=== PATIENT | male | born 1950 | race Caucasian/White ===

== ENCOUNTER 2018-01-05 06:22 | Outpatient (CLI) ==
--- NOTE | 2018-01-05 10:20 | STECHOSEST ---
Date of Test: 01/05/18 Ordering Physician: DR. ASHLEY NOE Occupation: DISABLED Reason for Exam: CHEST PAIN, SOB, COPD, CAD Smoking History: QUIT 22 YRS AGO Height: 77" Weight: 286 LBS Current Medications: LISINOPRIL, INHALER Resting EKG: SINUS RHYTHM/ LVH BY VOLTAGE Target Heart Rate: 130/154 S-T SEGMENT STAGE MPH/GRADE HEART RATE BPM BLOOD PRESSURE mmhg RHYTHM +/- ELEVATION DEPRESSION SYMPTOMS,COMMENTS At Rest 80 136/88 SR X NONE 1 1.7/10% 2 2.5/12% 3 3.4/14% 4 4.2/16% 5 5.0/18% Immediately after 126 156/90 SR X SHORT OF BREATH Minutes Post Exercise 5:00 77 140/84 SR X SHORT OF BREATH Minutes Post Exercise Total Time: 2:35 Maximum Heart Rate Reached: 126 Reason for Termination: SHORT OF BREATH 97% Oxygen saturation on room air with exercises Mets 4.6 INTERPRETATION 1. NO CHEST PAIN OR DISCOMFORT 2. COUPLE OF PVC'S WITH EXERCISE 3. HYPOKINETIC INFERIOR POST WALL AT REST AND WITH EXERCISE 4. SESTAMIBI TO FOLLOW MTDD
--- NOTE | 2018-01-05 11:13 | NM ---
EXAM: Myocardial perfusion imaging HISTORY: Chest pain COMPARISON: Myocardial imaging on 05/06/2011 showed no reversible ischemia. Old inferior wall infarc tion. Ejection fraction of 50%. TECHNIQUE: Patient was injected 3.7 mCi of thallium 201 chloride intravenously. SPECT imaging of the heart was acquired. Patient was stressed on a treadmill and at peak exercise injected 26.3 mCi of T c99m Sestamibi intravenously. Another SPECT imaging of the heart was performed. Gated cardiac study was acquired. FINDINGS: Post stress images show normal left ventricular cavity size. Fixed defect is noted involvi ng inferior wall most likely due to old infarction. No definite evidence of reversible ischemia. Le ft ventricular ejection fraction is 41%. IMPRESSION: 1. SPECT myocardial imaging shows no evidence of reversible ischemia 2. Old inferior wall myocardial infarction. 3. Left ventricular ejection fraction of 41%.
== END 2018-01-05 06:23 | disposition home or self-care (01) ==
LOC: CAR 06:22
PROVIDERS: ATTEND Internal Medicine
DX: R07.9 Chest pain, unspecified (principal); R06.02 Shortness of breath; I25.10 Atherosclerotic heart disease of native coronary artery without angina pectoris; Z95.5 Presence of coronary angioplasty implant and graft

== ENCOUNTER 2018-10-12 09:31 | Inpatient (IN) | payer OTHER ==
[2018-10-12 10:32] VITALS: BMI 34.9
[2018-10-12] MEDS ORDERED: NITROSTAT SL PRN (10:53)
[2018-10-12] MEDS ORDERED: TYLENOL PO PRN (10:53)
[2018-10-12] MEDS ORDERED: ATROPINE SULFATE PFS IVP PRN (10:53)
[2018-10-12] MEDS ORDERED: VISTARIL INJ IM PRN (10:53)
[2018-10-12] MEDS ORDERED: XOPENEX 1.25 MG NEB ONE (11:03)
[2018-10-12] MEDS ORDERED: DECADRON 4 MG/ML SDV IM SCH (11:30)
[2018-10-12] MEDS ORDERED: XOPENEX 1.25 MG NEB SCH (12:00)
[2018-10-12] MEDS ORDERED: PROAIR HFA IH SCH (12:00)
[2018-10-12 14:10] VITALS: BP 127/76; TEMP 97.5
--- NOTE | 2018-10-12 14:32 | CT ---
EXAM: CT ABDOMEN AND PELVIS HISTORY: Abdominal distension TECHNIQUE: CT abdomen and pelvis with intravenous contrast. Images were reconstructed using 5 mm se ction thickness. Reformations were prepared. 75 ml Visipaque. FINDINGS: No comparison. No focal hepatic or splenic lesions. Gallbladder is absent. Pancreas and adrenal glands are within normal limits. There is moderate bilateral hydronephrosis. A few small 4 mm calculi are seen in the upper left kidn ey. A few punctate calculi are seen in the right kidney. There is a round 7 mm calculus in the lowe r right ureter near the vesicoureteral junction level. No left ureteral calculus is seen. The urina ry bladder is grossly distended measuring up to 19 x 23 x 22 cm. Prostate may be minimally prominent in size. There is moderate to severe atherosclerotic disease. Fusiform aneurysmal caliber of the infrarenal a claudia measures up to 3.7 cm. Stomach appears normal. Normal appendix. No evidence of bowel obstruct ion. There is no ascites. N o ventral wall hernia. The bones reveal degenerative disc and facet di sease of the spine. Lung bases have minimal dependent atelectasis. There is no pneumoperitoneum. IMPRESSION: 1. Gross distension of the urinary bladder likely the etiology of moderate bilateral hydronephrosis. There is a round 7 mm calculus in the lower right ureter near the vesicoureteral junction although whether this calculus is causing obstruction is indeterminate. There is bilateral nephrolithiasis. No significant prostate enlargement. This bladder distension is suggestive of bladder outlet obstruc tion or neurogenic bladder. 2. Atherosclerotic disease with 3.7 cm fusiform aneurysmal caliber of the infrarenal aorta.
--- NOTE | 2018-10-12 14:34 | CT ---
EXAM: CT chest with contrast HISTORY: Shortness of breath, wheezing COMPARISON: None TECHNIQUE: CT chest performed with intravenous contrast. Coronal and sagittal reformatted images ob tained. FINDINGS: The thyroid and thoracic inlet appear normal. Heart normal in size. Coronary calcificati ons. No pericardial effusion. Aorta normal in caliber. Mild atherosclerosis. Esophagus unremarkab le. No lymphadenopathy identified in the chest. Calcified mediastinal and bilateral hilar lymph nod es, consistent with old granulomatous disease. No acute abnormalities of the bones. Degenerative ch megan in the spine. Anterior wedging of several mid thoracic vertebral bodies with chronic features. Accentuated kyphosis thoracic spine. Central airway patent. Mild bibasilar atelectasis. Very mild emphysematous change. Scattered scarring. No airspace consolidation. No pleural effusion. No pne umothorax. Granulomatous calcification. There are filling defects in the pulmonary arteries seen o n the right involving at least the right middle lobe and right lower lobe (image 28-29 and 26 also qu estionable filling defects involving left lower lobe pulmonary arteries around coronal image 73. Eval uation of the pulmonary arteries is limited on nonangiography CT chest Please refer to separate repor t CT abdomen pelvis regarding findings in the upper abdomen. IMPRESSION: 1. Critical finding: Right-sided pulmonary embolism. Questionable left-sided pulmonary embolism. Recommend a follow-up CT angiography chest to better assess thrombus burden. 2. Scattered subsegmental atelectasis and/or scarring. 3. Very mild emphysema. 4. Coronary calcifications. Atherosclerosis. Finding #1 called to patient nurse 2:28 p.m. 10/12/2018.
--- NOTE | 2018-10-12 14:57 | HP ---
DATE OF SERVICE: 10/12/18 HISTORY OF PRESENT ILLNESS: 68-year-old with complaint of shortness of breath with minimal exertion. Six weeks ago he had a UTI, stomach swollen, cannot breathe, wheezing, fatigue. He was seen at the clinic in [place], shortness of breath on exertion with no other symptoms of CHF. PAST MEDICAL HISTORY: Hypertension SD Sleep apnea Dyslipidemia Hyperglycemia COPD Asthma PAST SURGICAL HISTORY: Stents x2 Dr. Ventura CAD with stent 07/14 REVIEW OF SYSTEMS: CONSTITUTIONAL: Positive for fatigue. No fever. HEENT: No sinus drainage, no sore throat. RESPIRATORY: No cough, no congestion. CARDIOVASCULAR: No atypical chest pain for coronary artery disease. Burning on exertion. No CHF symptoms or palpitations. Shortness of breath. GASTROINTESTINAL: No melena or abdominal pain. No GERD. Appetite is normal. One bowel movement daily. GENITOURINARY: No hematuria, no prostatism, no polyuria. THEATRE MANAGER: No blackout, no dizziness, no headache, no double vision. MUSCULOSKELETAL: Osteoarthritis pain. ENDOCRINE: Weight gain. SKIN: Not dry, no rash. PSYCHIATRIC: Anxious. No depression, no suicidal thoughts, no homicidal thoughts. SOCIAL HISTORY: Marital Status: . Alcohol Usage: No. Tobacco Usage: No. FAMILY HISTORY: Father Mother Brother 2 Sister 2 MEDICATIONS: Aspirin 325mg PO daily Lisinopril 20/12.5mg PO daily Pravastatin 40mg twice a day ALLERGIES: Mobic Advair Band-aids PHYSICAL EXAMINATION: V/S: pulse 88, blood pressure 126/66, temperature 99, pulse ox 94%. Height 6'4 , BMI 36.3 and weight 298.2. GENERAL APPEARANCE: Oriented times three. HEENT: Normal. NECK: No JVP, no bruits. RESPIRATORY:Decreased breath sounds with mild expiratory wheezing. CARDIOVASCULAR: S1, S2, no S3, no murmurs. No cyanosis, clubbing. No ascites. GI/ABDOMEN: No tenderness. Bowel sounds are active. EXTREMITIES: edema, pulses +1, equal. THEATRE MANAGER: Deep tendon reflexes, sensory, motor and gait all normal. RECTAL: refused /PROSTATE: 8-1-18 (1.4). ASSESSMENT: 1. Shortness of breath with exertion 2. Exertional chest discomfort 3. History of UTI 6 weeks ago 4. Obesity 5. CAD with stent 07/14 6. Sleep apnea on CPAP 7. Hypertension 8. Dyslipidemia 9. Metabolic syndrome 10.Hyperglycemia 11.Chronic gout 12.Moderate COPD/asthma 13.Osteoarthritis bilateral hips 14.Status post cholecystectomy 15.PFT 01/15 16.Echo/stress 01/15 17.Noncompliant of life style, medications and followups. PLAN: 1. Routine telemetry orders 2. Urinalysis and culture and sensitivity 3. BNP 4. T4/TSH 5. ABG 6. CT scan of abdomen and pelvis with contrast 7. Lisinopril/HCTZ 20/12.5mg PO daily 8. Atorvastatin 40mg PO daily 9. Xopenex four times a day daily 10.1cc Decadron IM now and QAM 11.ProAir HFA two puffs four times a day 12.PFT 13.Echo 14.Dobutamine stress echo TIME SPENT: More than 70 minutes. MTDD
[2018-10-12] MEDS ORDERED: ELIQUIS PO SCH ×2 (15:00)
[2018-10-12] MEDS ORDERED: DEXTROSE 5%-1/2NS IV SOLUTION 1,000 ML IV SCH (15:30)
--- NOTE | 2018-10-12 16:04 | US ---
EXAM: ULTRASOUND LOWER EXTREMITY VENOUS DOPPLER EXAM HISTORY: Pulmonary embolism. FINDINGS: Bilateral lower extremity venous Doppler exam. Real time betts-scale, Doppler spectral mamadou lysis and color-flow Doppler imaging performed. The veins targeted for evaluation include the common femoral, greater saphenous, profundus, femoral, popliteal, peroneal, anterior tibial and posterior t ibial. Incomplete compression of the right superficial femoral and left popliteal veins with partial spontan eous blood flow remaining within these affected vessels. The evaluated veins otherwise demonstrated n ormal spontaneous flow and compression without evidence of thrombosis. IMPRESSION: 1. Nonocclusive thrombosis found within the right superficial femoral vein and the left popliteal ve in. Otherwise within normal limits.
--- NOTE | 2018-10-12 16:06 | DS ---
DATE OF SERVICE: 10/12/18 FINAL DIAGNOSIS: 1. RIGHT LOWER LUNG PULMONARY EMBOLI, QUESTIONABLE LEFT-SIDED INVOLVEMENT. 2. CHRONIC LUNG DISEASE WITH CHRONIC BRONCHIAL ASTHMA. 3. HISTORY OF CORONARY ARTERY DISEASE WITH STENT WITH INFERIOR WALL CO, JULY 2013. 4. OBSTRUCTIVE SLEEP APNEA ON CPAP. 5. OBESITY, BMI 36. 6. HISTORY OF HYPERTENSION. 7. HISTORY OF DYSLIPIDEMIA. 8. METABOLIC SYNDROME. 9. HISTORY OF DIABETES MELLITUS TYPE 2. 10. CHRONIC GOUT. 11. BILATERAL OSTEOARTHRITIS OF HIPS. 12. STATUS POST CHOLECYSTECTOMY, NONCOMPLIANCE OF LIFESTYLE, MEDICATIONS AND FOLLOWUP. 13. CHRONIC KIDNEY DISEASE, STAGE 2. DISCHARGE INSTRUCTIONS: Transfer to [facility]. MEDICATIONS AT DISCHARGE: Aspirin 325 mg daily Lisinopril 20/12.5 daily Proventil inhaler two puffs q.i.d. The patient was supposed to be on Atorvastatin 40 mg daily daily. NEW PRESCRIPTIONS: None DISCONTINUED MEDICATIONS: None DIET INSTRUCTIONS: N/A ACTIVITY: N/A SMOKING: Nonsmoker DISEASE SPECIFIC EDUCATION: Test results Transfer HOSPITAL COURSE: 68-year-old white male seen in the office. He walked in because of complaint of being short of breath for the past several weeks. The patient has been treated for UTI at [facility] 6 weeks ago. He says after that he is feeling distended with tight abdomen. The patient was wheezing at rest at that time. There was no evidence of congestive heart failure clinically. On further testing, the patient was noted to have pulmonary emboli on the right side and possibility of left. CT scan of the abdomen showed distended urinary bladder with hydronephrosis. Kidney functions use to be practically normal which has deteriorated some. Clinically, the patient is stable. He is oriented to time, place and person, not in distress. In fact, he says he is feeling better. The family is present especially the daughter and the patient were informed about the diagnosis. [facility] was called and talked to Dr. Haider who accepted the transfer. LABS/IMAGING: Hemoglobin 12.6, hematocrit 39, WBC 5,800 with normal differential. ABGs p02 73 , pc02 38, pH 7.38 with 94% saturation on room air. EKG sinus rhythm, inferior wall CO, rate of 75/min. CK negative. Troponin negative. Creatinine 1.4, BUN 34 , potassium 4.2. T4, TSH normal. CT scan of the abdomen showed gross urinary bladder distention, bilateral hydronephrosis, 7 mm calculus in the lower right ureter near vesicoureteral junction, could be causing obstruction on that side, bilateral nephrolithiasis, atherosclerotic disease with 3.7cm fusiform aneurysm. CT scan of the chest showed right middle lobe, right lower lobe emboli , possibility of left emphysema, scarring, coronary calcifications noted. ADDENDUM: Venous scan showed right partial femoral thrombus and left popliteal thrombus. Eliquis 10 mg p.o. dose has been given. CONDITION AT TIME OF TRANSFER: Stable. TIME SPENT: More than 60 minutes. MTDD
[2018-10-12] MEDS ORDERED: LIPITOR PO SCH (21:00)
[2018-10-13] MEDS ORDERED: ASPIRIN EC PO SCH (08:00)
[2018-10-13] MEDS ORDERED: ZESTORETIC 20-12.5 MG TAB PO SCH (09:00)
== END 2018-10-12 16:43 | disposition short-term general hospital (02) | DRG 176 ==
LOC: MEDSURG B 09:31 → SCU 14:54
PROVIDERS: ADMIT Internal Medicine; ATTEND Internal Medicine
DX: I26.99 Other pulmonary embolism without acute cor pulmonale (principal); I25.10 Atherosclerotic heart disease of native coronary artery without angina pectoris; I25.2 Old myocardial infarction; J44.9 Chronic obstructive pulmonary disease, unspecified; J45.909 Unspecified asthma, uncomplicated; I10 Essential (primary) hypertension; E66.9 Obesity, unspecified; E78.5 Hyperlipidemia, unspecified; E88.81 Metabolic syndrome and other insulin resistance; E11.9 Type 2 diabetes mellitus without complications; M1A.9XX0 Chronic gout, unspecified, without tophus (tophi); M16.0 Bilateral primary osteoarthritis of hip; N18.2 Chronic kidney disease, stage 2 (mild); G47.33 Obstructive sleep apnea (adult) (pediatric); R07.89 Other chest pain; Z68.36 Body mass index [BMI] 36.0-36.9, adult; Z91.19 Patient's noncompliance with other medical treatment and regimen
CPT/HCPCS: 36415; 80053; 81001; 82550; 82553; 82803; 83880; 84439; 84443; 84484; 85025; 93005; 93010; 94640

== ENCOUNTER 2018-10-12 16:47 | Outpatient (CLI) ==
[2018-10-12 10:32] VITALS: BMI 34.9
== END 2018-10-12 17:12 | disposition short-term general hospital (02) ==
LOC: AMBL 16:47
PROVIDERS: ATTEND Emergency Medicine
DX: I26.99 Other pulmonary embolism without acute cor pulmonale (principal); N13.30 Unspecified hydronephrosis; I25.2 Old myocardial infarction; J44.9 Chronic obstructive pulmonary disease, unspecified

== ENCOUNTER 2019-01-03 | Emergency (ER) | END 2019-01-03 12:44 | disposition home or self-care (01) | CPT/HCPCS: 36415; 51798; 80053; 81001; 85025; 85610; 85730; 87086; 87186; 99283 ==